=== PATIENT | male | born 1985 | race Caucasian/White ===

== ENCOUNTER 2017-03-26 13:15 | Emergency (ER) | payer OTHER ==
[2017-03-26 13:27] VITALS: BP 132/81
== END 2017-03-26 15:38 | disposition home or self-care (01) ==
LOC: ED 13:15
DX: K02.9 Dental caries, unspecified (principal); K08.89 Other specified disorders of teeth and supporting structures; Z88.8 Allergy status to other drugs, medicaments and biological substances
CPT/HCPCS: J1885

== ENCOUNTER 2017-03-29 04:17 | Emergency (ER) | payer OTHER ==
[2017-03-29 07:16] VITALS: BP 132/89
== END 2017-03-29 07:16 | disposition home or self-care (01) ==
LOC: ED 04:17
DX: R51 Headache (principal); F17.210 Nicotine dependence, cigarettes, uncomplicated; Z88.8 Allergy status to other drugs, medicaments and biological substances
CPT/HCPCS: J2270

== ENCOUNTER 2017-04-16 15:23 | Emergency (ER) | payer OTHER ==
[2017-04-16 16:38] VITALS: BP 121/79
== END 2017-04-16 16:38 | disposition home or self-care (01) ==
LOC: ED 15:23
DX: Z76.0 Encounter for issue of repeat prescription (principal); T43.611A Poisoning by caffeine, accidental (unintentional), initial encounter; G47.00 Insomnia, unspecified; F20.9 Schizophrenia, unspecified; I10 Essential (primary) hypertension; F41.9 Anxiety disorder, unspecified; F17.210 Nicotine dependence, cigarettes, uncomplicated; Z79.899 Other long term (current) drug therapy; Z88.8 Allergy status to other drugs, medicaments and biological substances; Y92.89 Other specified places as the place of occurrence of the external cause

== ENCOUNTER 2018-01-03 09:11 | Emergency (ER) | payer OTHER ==
[~2018-01-03] VITALS: Ht 175.3 cm; Wt 112.5 kg
[2018-01-03 09:52] VITALS: BP 131/97; Ht 175.3 cm; Wt 112.5 kg
== END 2018-01-03 10:26 | disposition left against medical advice (07) ==
LOC: ED 09:11
DX: F91.8 Other conduct disorders (principal); G93.49 Other encephalopathy; Z88.8 Allergy status to other drugs, medicaments and biological substances

== ENCOUNTER 2018-01-03 13:45 | Emergency (ER) | payer OTHER ==
[~2018-01-03] VITALS: Ht 175.3 cm; Wt 112.5 kg
[2018-01-03 13:50] VITALS: Ht 175.3 cm; Wt 112.5 kg
[2018-01-03 14:44] LABS: BASOPHIL % 0.8 % (0-2); PLATELET COUNT 176 x10^3mcL (130-400); RED CELL DISTRIBUTION WIDTH 13.2 % (11.5-14.5)
[2018-01-03 14:54] LABS: CARBON DIOXIDE 32.2 mmol/L (21-32); CHLORIDE SERUM 107 mmol/L (98-107); CREATININE SERUM 0.9 mg/dL (0.7-1.3); GFR1 > 60 mL/min; GLUCOSE SERUM 100 mg/dL (74-106); POTASSIUM SERUM 4.3 mmol/L (3.5-5.1); SODIUM SERUM 143 mmol/L (136-145)
[2018-01-03 14:58] LABS: ALBUMIN 3.6 g/dL (3.4-5.0); ALKALINE PHOSPHATASE 80 U/L (46-116); ALT/SGPT 30 U/L (16-63); AST/SGOT 21 U/L (15-37); BILIRUBIN TOTAL 0.3 mg/dL (0.20-1.00); TOTAL PROTEIN, SERUM 7.3 g/dL (6.4-8.2)
[2018-01-03 15:54] LABS: AMPHETAMINE QUAL UR NONE DETECTED (NEG <=1000)
[2018-01-03 16:26] VITALS: BP 118/79
== END 2018-01-03 16:27 | disposition home or self-care (01) ==
LOC: ED 13:45
PROVIDERS: Emergency Medicine
DX: F99 Mental disorder, not otherwise specified (principal); F20.9 Schizophrenia, unspecified; R47.89 Other speech disturbances; Z88.8 Allergy status to other drugs, medicaments and biological substances
CPT/HCPCS: 36415; G0480